=== PATIENT | female | born 1955 ===

== ENCOUNTER 2020-12-02 08:52 | Outpatient (CLI) | payer OTHER | END 2020-12-02 09:09 | disposition home or self-care (01) | LOC: SONOGRAMA 08:52 → MAMO-SONO 09:15 | PROVIDERS: ATTEND Obstetrics & Gynecology Gynecology | DX: N84.0 Polyp of corpus uteri (principal); E55.9 Vitamin D deficiency, unspecified; R92.1 Mammographic calcification found on diagnostic imaging of breast; N60.12 Diffuse cystic mastopathy of left breast; N60.11 Diffuse cystic mastopathy of right breast; Z80.3 Family history of malignant neoplasm of breast; R31.21 Asymptomatic microscopic hematuria; N84.1 Polyp of cervix uteri; D25.1 Intramural leiomyoma of uterus ==